=== PATIENT | female | born 1975 | race Caucasian/White ===

== ENCOUNTER → 2017-07-25 | Outpatient (CLI) | payer BC ==
[2013-11-27 07:55] VITALS: BMI 37.9
[~2017-07-25] MED LIST: ALB17R INH; ALBU8.5H IH; ALPR-429 PO; CETI10CA8 PO; DIPH-740 PO; Ibuprofen PO; KET10 PO; MULT-1094 PO; ONDA4TAB97 PO; PER PO
[2017-07-25 15:30] LABS: PLATELET COUNT, AUTOMATED 196 K/uL (150-450)
--- NOTE | 2017-07-25 15:48 | RADIOLOGY IMAGING REPORT ---
FACILITY: [facility] [place] PATIENT NAME: Arelis Moreno : 1975 MR: [id number] V: [id number] EXAM DATE: ORDERING PHYSICIAN: DEVIN ARGUETA TECHNOLOGIST: Location: [facility] [place] Patient: Arelis Moreno : 1975 Visit/Account:[id number] Date of Sevice: 07/25/2017 2 VIEWS CHEST INDICATION: Shortness of breath. COMPARISON: None available FINDINGS: Cardiomediastinal silhouette and pulmonary vessels within normal limits. There is no focal infiltrate or lobar consolidation. There is no pneumothorax or pleural effusion. No nodule. Upper abdomen is unremarkable. No acute bony abnormality. IMPRESSION: 1. No acute cardiopulmonary process. Report Dictated By: Suhail Jain at 07/25/2017 3:41 PM Report E-Signed By: Suhail Jain at 07/25/2017 3:43 PM WSN:[id number]
== END ==
LOC: RAD 14:40
PROVIDERS: ATTEND Nurse Practitioner Primary Care
DX: R06.02 Shortness of breath (principal)
CPT/HCPCS: 36415; 71046; 82040; 82247; 82310; 82374; 82435; 82565; 82728; 82947; 83540; 83550; 83880; 84075; 84132; 84155; 84295; 84450; 84460; 84484; 84520; 85025; 85379

== ENCOUNTER → 2017-10-18 | Outpatient (CLI) | payer BC ==
[2013-11-27 07:55] VITALS: BMI 37.9
[~2017-10-18] MED LIST changes: +FLUO-177 PO
--- NOTE | 2017-10-18 16:31 | RADIOLOGY IMAGING REPORT ---
[place] [facility] [place]: Arelis Moreno : 1975 MR: [id number] V: [id number] EXAM DATE: ORDERING PHYSICIAN: MACRINA BETTENCOURT TECHNOLOGIST: Location: [facility] Patient: Arelis Moreno : 1975 Visit/Account:[id number] Date of Sevice: 10/18/2017 PELVIC HISTORY: Heavy menstrual cycle TECHNIQUE: Transabdominal and transvaginal ultrasound pelvis. COMPARISON: CT abdomen pelvis February 06, 2014 FINDINGS: Uterus: Retroflexed; 7.1 cm length x 4.6 cm AP x 6.3 cm transverse. Myometrium: Mildly heterogeneous. Endometrium: Unremarkable; double thickness 7.3 mm. Cervix: Grossly negative. Ovaries: Right - 2.9 x 2.2 x 1.9 cm contains a 1.2 cm simple cyst Left - 2.8 x 2.3 x 2.1 cm contains a 1.4 cm simple cyst Blood flow is documented in each ovary by duplex Doppler ultrasound. Adnexa: Grossly unremarkable. Free pelvic fluid: Small amount of free fluid is seen adjacent to the left ovary. IMPRESSION: Retroflexed uterus with mildly heterogeneous myometrium 1.2 cm simple right ovarian cyst and 1.4 cm simple left ovarian cyst Small amount of free fluid is seen adjacent to the left ovary Report Dictated By: Rekha Theodore MD at 10/18/2017 4:23 PM Report E-Signed By: Rekha Theodore MD at 10/18/2017 4:27 PM WSN:[email or web address]
== END ==
LOC: US 01:23
PROVIDERS: ATTEND Family Medicine
DX: N83.202 Unspecified ovarian cyst, left side (principal); N83.201 Unspecified ovarian cyst, right side
CPT/HCPCS: 76856